=== PATIENT | female | born 1955 | race Caucasian/White ===

== ENCOUNTER → 2016-12-25 | Outpatient (CLI) | payer BC ==
[2016-12-25 12:35] LABS: BLOOD UREA NITROGEN 15 mg/dl (7-18); BUN/CREATININE RATIO 20.4 (10-20); CALCIUM 8.9 mg/dl (8.5-10.1); CARBON DIOXIDE 29 mmol/L (21-32); CHLORIDE 105 mmol/L (98-107); CREATININE 0.73 mg/dl (0.60-1.20); GLUCOSE 102 mg/dl (70-99); POTASSIUM 3.8 mmol/L (3.5-5.1); SODIUM 141 mmol/L (136-145)
[2016-12-25 12:38] LABS: CHOLESTEROL 223 mg/dl (0-200); CHOLESTEROL/HDL RATIO 3.7; HDL CHOLESTEROL 61 mg/dl; LDL CHOLESTEROL CALCULATED 141 mg/dl; TRIGLYCERIDES 104 mg/dl (0-150); VERY LOW DENSITY LIPOPROT CALC 21 mg/dl
== END | disposition home or self-care (01) ==
LOC: C.LABPVFM 08:07
PROVIDERS: ATTEND Nurse Practitioner
DX: Z13.1 Encounter for screening for diabetes mellitus (principal); Z13.220 Encounter for screening for lipoid disorders; E78.5 Hyperlipidemia, unspecified

== ENCOUNTER → 2017-04-26 | Outpatient (CLI) | payer BC ==
--- NOTE | 2017-04-26 16:00 | MAMMOGRAPHY REPORT ---
BILATERAL DIGITAL SCREENING MAMMOGRAM WITH CAD: 04/26/2017 CLINICAL HISTORY: Routine screening. Patient has no complaints. TECHNIQUE: Bilateral CC and MLO views were obtained. Current study was also evaluated with a Comput er Aided Detection (CAD) system. COMPARISON: Comparison is made to exams dated: 03/09/2016 mammogram, 03/06/2015 mammogram, 03/05/2014 mamm ogram, 02/21/2013 mammogram, 08/22/2012 mammogram, and 02/19/2012 mammogram - [facility] ter. BREAST COMPOSITION: There are scattered areas of fibroglandular density in both breasts. FINDINGS: No suspicious mass, architectural distortion or cluster of microcalcifications is seen. IMPRESSION: ACR BI-RADS CATEGORY 1: NEGATIVE There is no mammographic evidence of malignancy. A 1 year screening mammogram is recommended. The pa tient will receive written notification of the results. Approximately 10% of breast cancers are not detected with mammography. A negative mammographic report should not delay biopsy if a clinically suggestive mass is present. Heike Salgado M.D. ay/:04/26/2017 15:51:16 Bar And Filler Assembler: Darlene WIN(R)(M)(BD), [facility] letter sent: Normal 1/2 BI-RADS Code: ACR BI-RADS Category 1: Negative
== END | disposition home or self-care (01) ==
LOC: C.MAMM 15:25
PROVIDERS: ATTEND Family Medicine
DX: Z12.31 Encounter for screening mammogram for malignant neoplasm of breast (principal); Z00.00 Encounter for general adult medical examination without abnormal findings; M85.851 Other specified disorders of bone density and structure, right thigh; M85.852 Other specified disorders of bone density and structure, left thigh

== ENCOUNTER → 2018-01-18 | Outpatient (CLI) | payer BC ==
[2018-01-18 14:35] LABS: BLOOD UREA NITROGEN 13 mg/dl (7-18); CALCIUM 8.9 mg/dl (8.5-10.1); CARBON DIOXIDE 29 mmol/L (21-32); CREATININE 0.72 mg/dl (0.60-1.20); GLUCOSE 104 mg/dl (70-99); POTASSIUM 3.8 mmol/L (3.5-5.1); SODIUM 137 mmol/L (136-145)
[2018-01-18 14:38] LABS: CHOLESTEROL 216 mg/dl (0-200); LDL CHOLESTEROL CALCULATED 124 mg/dl
== END | disposition home or self-care (01) ==
LOC: C.LABPVFM 09:25
PROVIDERS: ATTEND Nurse Practitioner
DX: Z13.1 Encounter for screening for diabetes mellitus (principal); Z13.220 Encounter for screening for lipoid disorders

== ENCOUNTER 2025-01-02 03:20 | Observation (INO) ==
[2025-01-02 03:55] LABS: Basophils # (auto) 0.04 K/uL (0.00-0.20); Basophils % (auto) 0.5 %; Eosinophils # (auto) 0.24 K/uL (0.00-0.50); Eosinophils % (auto) 2.7 %; Hematocrit (blood only) 41.5 % (37.0-47.0); Hemoglobin 13.8 g/dl (12.0-16.0); Immature Granulocytes # (auto) 0.03 K/uL (0.01-0.20); Immature Granulocytes % (auto) 0.3 %; Lymphocytes # (auto) 2.31 K/uL (1.20-3.40); Lymphocytes % (auto) 26.4 %; Mean Corpuscular Hemoglobin 29.1 pg (25.0-34.0); Mean Corpuscular Hgb Conc 33.3 g/dL (32.0-36.0); Mean Corpuscular Volume 87.6 fL (80.0-100.0); Mean Platelet Volume 10.5 fL (9.4-12.4); Monocytes # (auto) 0.68 K/uL (0.11-0.59); Monocytes % (auto) 7.8 %; Neutrophils # (auto) 5.44 K/uL (1.40-6.50); Neutrophils % (auto) 62.3 %; Platelet Count 295 K/uL (130-400); RDW Coefficient of Variation 13.6 % (11.5-14.5); RDW Standard Deviation 43.4 fL (36.4-46.3); Red Blood Count 4.74 M/uL (4.20-5.40); White Blood Count 8.74 K/ul (4.8-10.8)
[2025-01-02 04:07] LABS: Alanine Aminotransferase 20 U/L (7-52); Albumin Globulin Ratio 1.2 (0.9-2); Albumin Level 3.9 gm/dl (3.4-5.0); Alkaline Phosphatase 113 U/L (34-104); Anion Gap 7 (3-11); Aspartate Aminotransferase 32 U/L (13-39); BUN Creatinine Ratio 18.2 (10-20); Bilirubin,Total 0.5 mg/dl (0.2-1.0); Blood Urea Nitrogen 12 mg/dl (6-23); Calcium 9.4 mg/dl (8.6-10.3); Carbon Dioxide 26 mmol/L (21-32); Chloride 104 mmol/L (98-107); Creatinine Clr Calc Pharmacy 84.1 ml/min; Globulin 3.3 gm/dl (2.5-4.0); Glucose 115 mg/dl (70-99(Fasting)); Lipase 32 U/L (11-82); Potassium 3.5 mmol/L (3.5-5.1); Sodium 137 mmol/L (136-145); Total Protein 7.2 gm/dl (6.0-8.3)
--- NOTE | 2025-01-02 04:07 | Emergency Department Note ---
Impression & Plan Chest pain ED Provider Note HISTORY OF PRESENT ILLNESS: Patient is a 69-year-old female presenting with chest pain. Patient reports for the last 36 hours she has been having intermittent episodes of chest pain. She states that yesterday every 45 minutes to an hour she would develop substernal chest pain that radiated into her back and up into the right side of her neck. She was seen by her primary care provider who had ordered her nitroglycerin and recommended she present to the emergency department, but the patient reported that she thought the symptoms would get better and stayed home. She states that around 130 this morning she awoke from sleep with substernal chest pain on the substernal and right side of her chest that radiated to her back and into her right jaw. She reports she got very flushed and diaphoretic with this and nauseous. On arrival to the ER, she is currently complaining of no chest pain. She denies any associated shortness of breath. Denies any history of DVT or PE. Denies any anticoagulation or antiplatelet use. She was given 324 mg of aspirin prehospital with EMS. She denies any history of cardiac stents. She reports her last stress test was over a decade ago. ROS: as above PHYSICAL EXAM: Constitutional: Patient appears in no acute distress. HENT: Head: Normocephalic and atraumatic. Eyes: EOMI, PERRL Mouth/Throat: Mucous membranes moist. Neck: Trachea midline. Neck supple. Cardiovascular: RRR, No murmurs, rubs or gallops. Intact distal pulses. Pulmonary/Chest: No respiratory distress. Breath sounds clear and equal bilaterally. No wheezes or rales. Abdominal: Abdomen soft, no tenderness, rebound or guarding. Musculoskeletal: No edema, tenderness or deformity noted. Skin: Warm and dry. No rash, erythema, pallor or cyanosis Psychiatric: Appropriate mood and affect for situation. Neurological: Alert and keenly responsive. CN II-XII grossly intact, moving all extremities equally and fully. MDM: - Vitals signs showed hypertension - History obtained via patient. History as above. - Chronic conditions affecting care: HTN; pre-diabetes - Differential diagnoses include, but are not limited to: Acute coronary syndrome; pulmonary embolism; dissection; tension pneumothorax; esophageal rupture; pneumonia - Order placed for continuous cardiac monitoring. At this time, monitor showed rate of 64 bpm with normal sinus rhythm, per my interpretation. - External medical records reviewed. Primary care visit note dated 01/01/2025 was reviewed. Patient was seen for chest pain. She was prescribed aspirin and nitroglycerin. - EKG image interpreted by myself showed normal sinus rhythm. Rate 73 bpm. QT 396. No acute ischemic changes. - Laboratory workup interpreted by myself showed normal WBC; normal PT/INR; stable electrolytes; normal troponin; normal BNP - CXR image interpreted by myself is negative for pneumonia, per my interpretation. Radiology noted a right upper zone pulmonary nodule. - Patient had an episode of substernal chest pain while in the emergency department. IV Tylenol was ordered, but the patient declined. - Moderate risk HEART score. - Discussion was had with vocational case manager about patient's case and need for admission - Hospitalist consulted for admission - Patient admitted to [facility] for further evaluation and management. ASSESSMENT AND PLAN: Diagnosis: chest pain Plan: Admit Past Med/Surg History Problem List (Updated 01/02/25 @ 05:04 by Clarisse Dukes MD) Chest pain (Acute) S/P arthroscopic knee surgery Urinary symptom or sign Pre-diabetes Tear of medial meniscus of knee Nausea Right knee DJD Right knee pain Hypertension Allergic rhinitis Elevated serum globulin level Elevated alkaline phosphatase level Chronic reflux esophagitis (Acute) Irritable bowel syndrome (Acute) Menopausal vaginal dryness (Acute) Rosacea (Acute) Lichen sclerosus Cystocele (Chronic) pessary in place Medical History Slow to wake up after anesthesia Hypertension History of COVID-19 Rosacea IBS (irritable bowel syndrome) Pre-diabetes Pollen allergies Osteoarthritis Acid reflux Surgical History History of needle biopsy History of colonoscopy History of bilateral cataract extraction History of wisdom tooth extraction History of tubal ligation (~1986) Family History Father Myocardial infarction Family history of diabetes mellitus Mother Family history of diabetes mellitus Other No family history of adverse response to anesthesia Denies family history of Ovarian cancer Prostate cancer Breast cancer Colorectal cancer Social History (Updated 01/01/25 @ 13:32 by Lindsey Pascual LPN) Smoking Status: Never smoker Second Hand Exposure: Yes (as child); Do You Dip or Chew Tobacco: No; Hx Alcohol Use: Yes Alcohol type: beer, wine and hard liquor Alcohol Intake Frequency: 2-4 x/Month Hx Substance Use: No Preferred Language: Luxembourgish Communication Ability: Effective Visual Impairment: Limited Hearing Ability: Hard of Hearing Steam Tender Required: No Beliefs That Will Affect Care: None marital status: / Current Living Situation: Alone current occupational status: retired How many Children do You have: 1 Feels Safe at Home: Yes Childhood Exposure to Second-Hand Smoke: Yes Diet: regular caffeine: No during the past year weight has: remained stable Dental Care, Regularly: Yes Physical Activity Frequency: 3-4 Times per Week Physical Activity Frequency Comment: Stretching and weights class 2 days a week and walk about 2 days a week Seatbelt Use: always Sunscreen Use: No Do you think of yourself as: straight/heterosexual Sexual Activity: has been sexually active, but not for at least 12 months Gender Identity: Female Assistive Devices: Glasses Allergies Allergies Allergy/AdvReac Type Severity Reaction Status Date / Time No Known Drug Allergies Allergy Unknown Verified 01/01/25 13:31 pollen extracts Allergy Unknown sneezing, Verified 01/01/25 13:31 watery eyes Home Meds Home Medications Medication Instructions Recorded Confirmed beta tnrelrdr-I-O-lutein-min #29 1 tab PO QAM 01/04/20 01/01/25 5,000 unit-60 mg-30 unit-2 mg tablet (Macuvite With Lutein) calcium carbonate (Tums) 600 mg PO DAILY PRN Acid Reflux 07/11/20 01/01/25 diphenhydramine HCl 25 mg capsule 25 mg PO BID PRN Allergy Symptoms 07/11/20 01/01/25 (Benadryl) ibuprofen 200 mg tablet 200 mg PO Q6H PRN Pain 07/11/20 01/01/25 loratadine 10 mg tablet 10 mg PO QAM 07/11/20 01/01/25 omega-3 fatty acids 1,000 mg 1,000 mg PO DAILY 11/11/20 01/01/25 capsule (Fish Oil Concentrate) diclofenac sodium [Voltaren] 1 dose topical .nightly PRN Pain 04/28/23 01/01/25 cholecalciferol (vitamin D3) 125 125 mcg PO DAILY 01/14/24 01/01/25 mcg (5,000 unit) capsule Previous Rx's Medication Instructions Recorded clobetasol 0.05 % topical ointment 1 applic topical BID #30 grams 09/25/24 losartan 25 mg tablet 25 mg PO QAM #30 tabs 12/25/24 aspirin 81 mg tablet,delayed 81 mg PO DAILY #30 tabs 01/01/25 release (Adult Aspirin Regimen) nitroglycerin 0.4 mg sublingual 0.4 mg sublingual Q5M PRN chest 01/01/25 tablet pain #10 tabs Results & Data (ED) Vital Signs Vital Signs - 24 hr 01/02/25 03:31 01/02/25 03:37 01/02/25 03:45 Temperature 36.4 C L Temperature Source Oral Pulse Rate 68 63 Respiratory Rate 20 Respiratory Effort / Characteristics Non-Labored Spontaneous Respiratory Depth Normal Respiratory Pattern Regular Blood Pressure 153/89 H Blood Pressure Mean 110 Blood Pressure Position Semi-fowlers Pulse Oximetry 97 97 Oxygen Delivery Method Room Air Room Air Sepsis Recent Fever Within 48 Hours No Sepsis New/Unexplained Change in Mental Status N/A Sepsis Action Taken by Nursing No Action Required Laboratory Data 01/02/25 03:25 01/02/25 03:25 Lab Results 01/02/25 Range/Units 03:25 WBC 8.74 (4.8-10.8) K/ul RBC 4.74 (4.20-5.40) M/uL Hgb 13.8 (12.0-16.0) g/dl Hct 41.5 (37.0-47.0) % MCV 87.6 (80.0-100.0) fL MCH 29.1 (25.0-34.0) pg MCHC 33.3 (32.0-36.0) g/dL RDW Std Deviation 43.4 (36.4-46.3) fL RDW Coeff of [place] 13.6 (11.5-14.5) % Plt Count 295 (130-400) K/uL MPV 10.5 (9.4-12.4) fL Immature Gran % (Auto) 0.3 % Neut % (Auto) 62.3 % Lymph % (Auto) 26.4 % [place] % (Auto) 7.8 % Eos % (Auto) 2.7 % Baso % (Auto) 0.5 % Neut # (Auto) 5.44 (1.40-6.50) K/uL Lymph # (Auto) 2.31 (1.20-3.40) K/uL [place] # (Auto) 0.68 H (0.11-0.59) K/uL Eos # (Auto) 0.24 (0.00-0.50) K/uL Baso # (Auto) 0.04 (0.00-0.20) K/uL Immature Gran # (Auto) 0.03 (0.01-0.20) K/uL PT 10.3 (9.0-12.0) Seconds INR 0.9 (0.9-1.1) Sodium 137 (136-145) mmol/L Potassium 3.5 (3.5-5.1) mmol/L Chloride 104 (98-107) mmol/L Carbon Dioxide 26 (21-32) mmol/L Anion Gap 7 (3-11) BUN 12 (6-23) mg/dl Creatinine 0.66 (0.6-1.2) mg/dl Est Cr Clr Drug Dosing 84.1 ml/min eGFR 93.73 BUN/Creatinine Ratio 18.2 (10-20) Glucose 115 H (70-99(Fasting)) mg/dl Calcium 9.4 (8.6-10.3) mg/dl Total Bilirubin 0.5 (0.2-1.0) mg/dl AST 32 (13-39) U/L ALT 20 (7-52) U/L Alkaline Phosphatase 113 H (34-104) U/L Troponin I High Sens < 2.3 (0-14) pg/ml B-Natriuretic Peptide 25 (0-100) pg/ml Total Protein 7.2 (6.0-8.3) gm/dl Albumin 3.9 (3.4-5.0) gm/dl Globulin 3.3 (2.5-4.0) gm/dl Albumin/Globulin Ratio 1.2 (0.9-2) Lipase 32 (11-82) U/L Imaging Data Radiologist's Impression: Chest X-Ray 01/02/25 03:25 EXAM: XR chest 1V portable CLINICAL HISTORY: Chest pain, nonspecific TECHNIQUE: An X-ray image of the chest is obtained in AP projection. COMPARISON: No prior studies are available for comparison. FINDINGS: Pulmonary Parenchyma: Elevated left hemidiaphragm. Right upper zone pulmonary nodule. Lungs show prominent perihilar bronchovascular markings. No evidence of consolidation, collapse, or focal opacities. No evidence of pleural effusion or pleural thickening. Heart and Mediastinum: Heart size and shape are normal. No mediastinal widening or masses. No hilar or mediastinal lymphadenopathy. Bony Thorax: Bony thorax appears intact without fractures or deformities. Soft Tissues: Soft tissues overlying the chest wall are unremarkable. IMPRESSION: - Prominent perihilar bronchovascular markings may be non-specific versus representing congestion. Clinical correlation is suggested. - No evidence of consolidation, collapse, or pleural effusion. - Right upper zone dense pulmonary nodule, may represent a granuloma. Comparison with previous imaging is suggested. - Elevated left hemidiaphragm. Electronically signed by Sukhdeep Moore 01-02-2025 04:15 AM Discharge Plan Visit Data Chief Complaint: Cardiac Assessment Stated Complaint: HAD CHEST PAIN EARLIER, RESOLVED NOW ED Provider: Clarisse Dukes Discharge Problem: Chest pain Forms Stand Alone Forms: [facility] Prescriptions Prescriptions: No Action clobetasol 0.05 % ointment 1 applic topical BID Qty: 30 2RF losartan 25 mg tablet 25 mg PO QAM Qty: 30 11RF omega-3 fatty acids [Fish Oil Concentrate] 1,000 mg capsule 1,000 mg PO DAILY cholecalciferol (vitamin D3) 125 mcg (5,000 unit) capsule 125 mcg PO DAILY diclofenac sodium [Voltaren] 1 dose topical .nightly PRN (Reason: Pain) Macuvite With Lutein 5,000-60-30-2 nafs-nx-gusr-mg tablet 1 tab PO QAM nitroglycerin 0.4 mg tablet, sublingual 0.4 mg sublingual Q5M PRN (Reason: chest pain) Qty: 10 0RF Rx Instructions: do not exceed 3 doses per episode aspirin [Adult Aspirin Regimen] 81 mg tablet,delayed release (DR/EC) 81 mg PO DAILY Qty: 30 2RF diphenhydramine HCl [Benadryl] 25 mg Capsule 25 mg PO BID PRN (Reason: Allergy Symptoms) ibuprofen 200 mg Tablet 200 mg PO Q6H PRN (Reason: Pain) loratadine 10 mg Tablet 10 mg PO QAM Tums 300 mg (750 mg) Tablet,Chewable 600 mg PO DAILY PRN (Reason: Acid Reflux) Referrals Referrals: Viv Hernandez CRNP [Primary Care Provider] -
[2025-01-02 04:13] LABS: Troponin I High Sensitivity < 2.3 pg/ml (0-14)
[2025-01-02 04:15] LABS: INR 0.9 (0.9-1.1); Prothrombin Time 10.3 Seconds (9.0-12.0)
--- NOTE | 2025-01-02 04:15 | XRay Report ---
EXAM: XR chest 1V portable CLINICAL HISTORY: Chest pain, nonspecific TECHNIQUE: An X-ray image of the chest is obtained in AP projection. COMPARISON: No prior studies are available for comparison. FINDINGS: Pulmonary Parenchyma: Elevated left hemidiaphragm. Right upper zone pulmonary nodule. Lungs show prominent perihilar bronchovascular markings. No evidence of consolidation, collapse, or focal opacities. No evidence of pleural effusion or pleural thickening. Heart and Mediastinum: Heart size and shape are normal. No mediastinal widening or masses. No hilar or mediastinal lymphadenopathy. Bony Thorax: Bony thorax appears intact without fractures or deformities. Soft Tissues: Soft tissues overlying the chest wall are unremarkable. IMPRESSION: - Prominent perihilar bronchovascular markings may be non-specific versus representing congestion. Clinical correlation is suggested. - No evidence of consolidation, collapse, or pleural effusion. - Right upper zone dense pulmonary nodule, may represent a granuloma. Comparison with previous imaging is suggested. - Elevated left hemidiaphragm. Electronically signed by Sukhdeep Moore 01-02-2025 04:15 AM
[2025-01-02] MEDS: ACETAMINOPHEN 1,000 MG/100 ML VIAL IV STA (05:11)
--- NOTE | 2025-01-02 05:27 | History & Physical Report ---
Date of Service January 02, 2025 Assessment & Plan (1) Chest pain: Plan 69-year-old female PMHx prediabetes and HTN presenting for chest pain. Patient was just seen by PCP on 01/01/2025 for same complaint which started 2 days prior to that (12/30/2024). ED evaluation reveals no leukocytosis, normal blood counts, no gross abnormalities on CMP with exception of alkaline phosphatase at 113, troponin <2.3, repeat 3.3, and lipase of 32; CXR reveals no acute findings but does demonstrate R upper zone dense pulmonary nodule and prominent bronchovascular markings. EKG is normal sinus at a rate of 73 bpm. Patient was provided with acetaminophen 1 g IV in ED. 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 Presenting today for being awoken at 0130 for chest pain that radiates up to neck and back. Positive family history of cardiac disease. Low suspicion that this is ACS however HEART score is 4 (history moderately suspicious, age, 1-2 risk factors). - EKG normal sinus at a rate of 73 bpm; troponin <2.3, repeat 3.3; pending echo - CBC, CMP grossly WNL - CXR with ? prominent bronchovascular markings and are present dense pulmonary nodule - Pending lipids; not on statin, however consideration of starting statin was discussed at most recent PCP visit on 01/01/2025. - Continue NTG, continue aspirin - Tylenol as needed for pain #HTN- Losartan Dispo: Admit, med/tele VTE prophylaxis: Lovenox This document was dictated utilizing TIME PLUS Q. Please excuse any grammatical errors that may be secondary to use of this software. Admission and Anticipated Discharge Date Admission Date: 01/02/2025 History of Present Illness Chief Complaint: Chest pain Primary Care Provider: KETTY Orellana 69-year-old female PMHx prediabetes and HTN presenting for chest pain. Patient was just seen by PCP on 01/01/2025 for same complaint which started 2 days prior to that (12/30/2024). Presenting today via EMS after she awoke from sleep around 0130 with sharp pain in the right side of her chest that radiated to her right neck and jaw as well as her back. She did have an episode of nausea without vomiting and did have diaphoresis. The pain is sharp in nature, rating 4-5/10 on the pain scale, and episodes lasting 30 seconds to 1 minute in duration then resolving. States that she has never had this happen before. Does have acid reflux at baseline and has noticed increased belching over the past few days. 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 Patient was prescribed nitroglycerin by her PCP but did not pick it up yet. Also recommended to start daily aspirin which patient has been doing. Denies palpitations, SOB, cough, abdominal pain, D/C, numbness/tingling, LUTS, edema, syncope, or dizziness. Never had this happen before. ED evaluation reveals no leukocytosis, normal blood counts, no gross abnormalities on CMP with exception of alkaline phosphatase at 113, troponin <2.3, pending repeat, and lipase of 32; CXR reveals no acute findings but does demonstrate R upper zone dense pulmonary nodule and prominent bronchovascular markings. EKG is normal sinus at a rate of 73 bpm. Patient was provided with acetaminophen 1 g IV in ED. Please see Dr. Byers's attestation for adjustments/additions to treatment plan. Allergies Allergy/AdvReac Type Severity Reaction Status Date / Time No Known Drug Allergies Allergy Unknown Verified 01/01/25 13:31 pollen extracts Allergy Unknown sneezing, Verified 01/01/25 13:31 watery eyes Home Medications Medication Instructions Recorded Confirmed Type beta spqemcng-J-C-lutein-min #29 1 tab PO QAM 01/04/20 01/02/25 History 5,000 unit-60 mg-30 unit-2 mg tablet (Macuvite With Lutein) calcium carbonate (Tums) 600 mg PO DAILY PRN Acid Reflux 07/11/20 01/02/25 History diphenhydramine HCl 25 mg capsule 25 mg PO BID PRN Allergy Symptoms 07/11/20 01/02/25 History (Benadryl) ibuprofen 200 mg tablet 200 mg PO Q6H PRN Pain 07/11/20 01/02/25 History loratadine 10 mg tablet 10 mg PO QAM 07/11/20 01/02/25 History omega-3 fatty acids 1,000 mg 1,000 mg PO DAILY 11/11/20 01/02/25 History capsule (Fish Oil Concentrate) diclofenac sodium [Voltaren] 1 dose topical .nightly PRN Pain 04/28/23 01/02/25 History cholecalciferol (vitamin D3) 125 125 mcg PO DAILY 01/14/24 01/02/25 History mcg (5,000 unit) capsule clobetasol 0.05 % topical ointment 1 applic topical BID #30 grams 09/25/24 01/02/25 Rx losartan 25 mg tablet 25 mg PO QAM #30 tabs 12/25/24 01/02/25 Rx aspirin 81 mg tablet,delayed 81 mg PO DAILY #30 tabs 01/01/25 01/02/25 Rx release (Adult Aspirin Regimen) nitroglycerin 0.4 mg sublingual 0.4 mg sublingual Q5M PRN chest 01/01/25 01/02/25 Rx tablet pain #10 tabs Past Med/Surg History Problem List (Updated 01/02/25 @ 05:04 by Clarisse Dukes MD) Chest pain (Acute) S/P arthroscopic knee surgery Urinary symptom or sign Pre-diabetes Tear of medial meniscus of knee Nausea Right knee DJD Right knee pain Hypertension Allergic rhinitis Elevated serum globulin level Elevated alkaline phosphatase level Chronic reflux esophagitis (Acute) Irritable bowel syndrome (Acute) Menopausal vaginal dryness (Acute) Rosacea (Acute) Lichen sclerosus Cystocele (Chronic) pessary in place Medical History Slow to wake up after anesthesia Hypertension History of COVID-19 Rosacea IBS (irritable bowel syndrome) Pre-diabetes Pollen allergies Osteoarthritis Acid reflux Surgical History History of needle biopsy History of colonoscopy History of bilateral cataract extraction History of wisdom tooth extraction History of tubal ligation (~1986) Family History Father Myocardial infarction Family history of diabetes mellitus Mother Family history of diabetes mellitus Other No family history of adverse response to anesthesia Denies family history of Ovarian cancer Prostate cancer Breast cancer Colorectal cancer Social History (Updated 01/01/25 @ 13:32 by Lindsey Pascual LPN) Smoking Status: Never smoker Second Hand Exposure: Yes (as child); Do You Dip or Chew Tobacco: No; Hx Alcohol Use: No Hx Substance Use: No Preferred Language: Sami Communication Ability: Effective Visual Impairment: Limited Hearing Ability: Hard of Hearing 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 Beliefs That Will Affect Care: None marital status: / Current Living Situation: Alone current occupational status: retired How many Children do You have: 1 Feels Safe at Home: Yes Childhood Exposure to Second-Hand Smoke: Yes Diet: regular caffeine: No during the past year weight has: remained stable Dental Care, Regularly: Yes Physical Activity Frequency: 3-4 Times per Week Physical Activity Frequency Comment: Stretching and weights class 2 days a week and walk about 2 days a week Seatbelt Use: always Sunscreen Use: No Do you think of yourself as: straight/heterosexual Sexual Activity: has been sexually active, but not for at least 12 months Gender Identity: Female Assistive Devices: Glasses Review of Systems Review of Systems: All systems reviewed & are unremarkable except as noted in Subjective Physical Exam Physical Exam: General: No acute distress Skin: Warm and dry Head: Normocephalic, atraumatic Eyes: PERRL, conjunctivae clear, sclera non-icteric ENT: External ear and ear canal without swelling; nose atraumatic; good dentition, tongue normal appearance, pharynx normal Neck: Supple, no LAD Cardio: RRR, no M/G/R, S1 and S2 normal Resp: No respiratory distress, Lungs CTA in all lobes bilaterally, no wheezes, rales, or rhonchi Abdomen: Soft, symmetric, nontender; No masses or hepatosplenomegaly; Bowel sounds normoactive MSK: No deformities; pulses palpable and equal; no edema. Neuro: Awake, alert; CN grossly intact Psych: Appropriate mood and affect; good judgement and insight. Becomes tearful when discussing code status. Results & Data Results & Data Vital Signs (Past 12 Hours) Vital Signs Temp Pulse Resp BP Pulse Ox O2 Del Method 01/02/25 03:45 63 01/02/25 03:37 97 Room Air 01/02/25 03:31 36.4 C L 68 20 153/89 H 97 Room Air Laboratory Results 01/02/25 03:25 WBC 8.74 RBC 4.74 Hgb 13.8 Hct 41.5 MCV 87.6 MCH 29.1 MCHC 33.3 RDW Std Deviation 43.4 RDW Coeff of [place] 13.6 Plt Count 295 MPV 10.5 Immature Gran % (Auto) 0.3 Neut % (Auto) 62.3 Lymph % (Auto) 26.4 Butler % (Auto) 7.8 Eos % (Auto) 2.7 Baso % (Auto) 0.5 Neut # (Auto) 5.44 Lymph # (Auto) 2.31 Butler # (Auto) 0.68 H Eos # (Auto) 0.24 Baso # (Auto) 0.04 Immature Gran # (Auto) 0.03 PT 10.3 INR 0.9 Sodium 137 Potassium 3.5 Chloride 104 Carbon Dioxide 26 Anion Gap 7 BUN 12 Creatinine 0.66 Est Cr Clr Drug Dosing 84.1 eGFR 93.73 BUN/Creatinine Ratio 18.2 Glucose 115 H Calcium 9.4 Total Bilirubin 0.5 AST 32 ALT 20 Alkaline Phosphatase 113 H Troponin I High Sens < 2.3 B-Natriuretic Peptide 25 Total Protein 7.2 Albumin 3.9 Globulin 3.3 Albumin/Globulin Ratio 1.2 Lipase 32 Diagnostic Findings Chest X-Ray 01/02/25 03:25 EXAM: XR chest 1V portable CLINICAL HISTORY: Chest pain, nonspecific TECHNIQUE: An X-ray image of the chest is obtained in AP projection. COMPARISON: No prior studies are available for comparison. FINDINGS: Pulmonary Parenchyma: Elevated left hemidiaphragm. Right upper zone pulmonary nodule. Lungs show prominent perihilar bronchovascular markings. No evidence of consolidation, collapse, or focal opacities. No evidence of pleural effusion or pleural thickening. Heart and Mediastinum: Heart size and shape are normal. No mediastinal widening or masses. No hilar or mediastinal lymphadenopathy. Bony Thorax: Bony thorax appears intact without fractures or deformities. Soft Tissues: Soft tissues overlying the chest wall are unremarkable. IMPRESSION: - Prominent perihilar bronchovascular markings may be non-specific versus representing congestion. Clinical correlation is suggested. - No evidence of consolidation, collapse, or pleural effusion. - Right upper zone dense pulmonary nodule, may represent a granuloma. Comparison with previous imaging is suggested. - Elevated left hemidiaphragm. Electronically signed by Sukhdeep Moore 01-02-2025 04:15 AM Medications Administered Acetaminophen 1g IV ECG Additional Comments: NSR, minimal voltage criteria for LVH 73 bpm, MS 190, QRS 82, QT/QTc 396/436, PRT 51/-01/23 Code Status & VTE Plan Code Status DNR/DNI Supervising Physician Co-Signing Physician Notes Patient seen and examined, chart reviewed, case discussed with NICK Cross and I agree with the assessment and plan as above. In brief, patient is a 69yo female with no known cardiac history, pre-DM, HTN and FHx of cardiac disease presenting with chest pain. She has had an ongoing intermittent right sided chest pain which started several days ago. She was seen by her PCP and instructed to come to the ER if the pain returns. She did have an episode that woke her from sleep that radiated down her right arm, neck and back associated with some diaphoresis. Troponin x 2 unremarkable but do show a slight uptrend EKG is non-ischemia On exam she is resting comfortably, NAD Skin - intact, no rash HEENT - MMM, neck supple, no JVD Heart - +S1/S2, regular, no m/r/g, no chest wall rashes, no reproducible chest wall pain or epigastric pain Lungs - CTA, no rales/rhonchi/wheezes Abd - soft, NT/ND Labs and images reviewed Assessment/Plan 69yo female with history of pre-DM, HTN, family history of CAD presenting with ongoing chest discomfort. Fairly certain that the ongoing pain is non-cardiac as it has been going for >36 hours, no acute EKG changes and Troponin x 2 is NEGATIVE. Some low level concern for this episode that woke her from sleep. -Observation -Telemetry monitoring -Trend troponin PG Care Time/CCT Total # of Minutes Spent Total Time Spent with Patient: Total time spent is greater than 50% in coordination of care (as documented) at patient's floor/unit and/or counseling patient: Coding Level of Care Code 71753 INT INP/OBS CARE 3/75MIN Diagnoses Chest pain R07.9
[2025-01-02] MEDS ORDERED: ACETAMINOPHEN 325 MG TAB PO PRN (08:35)
[2025-01-02] MEDS ORDERED: POLYETHYLENE (MIRALAX) 17 GM PACK PO PRN (08:35)
[2025-01-02] MEDS ORDERED: MELATONIN 3 MG TAB PO PRN (08:35)
[2025-01-02 10:56] LABS: Chol HDL Ratio 2.9 (0-5)
[2025-01-02] MEDS: ENOXAPARIN INJ 40 MG/0.4 ML SYR SQ SCH (10:56)
[2025-01-02 11:57] LABS: Appearance Urine Clear (Clear); Bacteria Urine Automated None Seen (None Seen); Bilirubin Urine Negative (Negative); Blood Urine Negative (Negative); Cast Urine Automated 0-2 /lpf (0-2); Color Urine Yellow; Epithelial Cell Urine Auto 0-2 /hpf (0-2); Glucose Urine UA Negative (Negative); Ketones Urine Negative (Negative); Leukocyte Esterase Urine 1+ (Negative); Nitrite Urine Negative (Negative); Protein Urine Negative (Negative); RBC Urine Automated 0-2 /hpf (0-2); Specific Gravity Urine 1.018 (1.000-1.030); Urobilinogen Urine Negative (Negative); WBC Urine Automated 0-5 /hpf (0-5)
[2025-01-02] MEDS ORDERED: CALCIUM CARBONATE 500 MG CHEWABLE TAB PO PRN (15:17)
--- NOTE | 2025-01-02 15:27 | Hospitalist Progress Note ---
Date of Service January 02, 2025 Assessment & Plan (1) Chest pain: Plan 69-year-old female PMHx of HTN admitted for observation for chest pain. Patient was just seen by PCP on 01/01/2025 for same complaint which started 2 days prior to that (12/30/2024). ED evaluation revealed no leukocytosis, normal blood counts, no gross abnormalities on CMP with exception of alkaline phosphatase at 113, troponin <2.3, repeat 3.3, and lipase of 32; CXR reveals no acute findings but does demonstrate R upper zone dense pulmonary nodule and prominent bronchovascular markings. EKG is normal sinus at a rate of 73 bpm. Pain was controlled with acetaminophen 1 g IV in ED. 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 Presenting today for being awoken at 0130 for chest pain that radiates up to neck and back. Positive family history of cardiac disease. Low suspicion that this is ACS however HEART score is 4 (history moderately suspicious, age, 1-2 risk factors). - EKG normal sinus at a rate of 73 bpm; troponin <2.3, repeat 3.3 - Repeat EKG during episode of chest pain this morning reassuring with read in sinus rhythm and without evidence of ST changes - Awaiting results from Echocardiogram - Ordered cardiology consult regarding need for stress test - CBC, CMP grossly WNL - CXR with ? prominent bronchovascular markings and are present dense pulmonary nodule Consider outpt follow up for pulmonary nodule - Total Cholesterol is 207, HDL is 71 Not on statin, however consideration of starting statin was discussed at most recent PCP visit on 01/01/2025. - Continue nitroglycerine PRN - Continue Aspirin 81 mg - Tylenol 650mg PO as needed for pain #HTN- -Continue Losartan 25mg Chronic Conditions: - Loratadine 10 mg for allergies - Polyethylene Glycol 17gm PRN for constipation Diet: Regular Code status: DNR/DNI DVT prophylaxis: Enoxaparin 40mg qd Dispo: Med tele Dispo: Admit, med/tele VTE prophylaxis: Lovenox Code status: Full Code Diet: Heart Healthy Admission and Anticipated Discharge Date Admission Date: January 02, 2025 Supervising Physician Co-Signing Physician Notes Patient seen and examined, chart reviewed, case discussed with Crista Haley PGY1 and I agree with the assessment and plan as above. In brief, patient is a 69yo female with no known cardiac history, pre-DM, HTN and FHx of cardiac disease presenting with chest pain. She has had an ongoing intermittent right sided chest pain which started several days ago. She was seen by her PCP and instructed to come to the ER if the pain returns. She did have an episode that woke her from sleep that radiated down her right arm, neck and back associated with some diaphoresis. Troponin x 2 unremarkable but do show a slight uptrend EKG is non-ischemia Exam is nonspecific. Had a previous stress test workup in the distant past but this discomfort also include arm discomfort Labs and images reviewed Assessment/Plan 69yo female with history of pre-DM, HTN, family history of CAD presenting with ongoing chest discomfort. Fairly certain that the ongoing pain is non-cardiac as it has been going for >36 hours, no acute EKG changes and Troponin x 2 is NEGATIVE. Some low level concern for this episode that woke her from sleep. -Troponin trend is unrevealing given the patient's description of significant exertional discomfort will have cardiology consultation to determine if we will proceed with stress testing Subjective Pt is a 69 yo female with PMH of HTN, IBS, and Knee OA who presented to ED with chest pain. This morning, pt reported increased chest pain and EKG was performed. Pt was in sinus rhythm without evidence of ST elevations or depressions. Troponins g=have been stable and <3.0. Pt describes pain at left sided anterior chest with radiation to he mid back. She reports accompanying nausea, belching/gassiness and mild SOB. She denies radiation of pain to arm or jaw, dizziness, fatigue, or vomiting. Pt denies history of previous chest pain described. She does endorse chest pain with SOB during a time of high stress at her job approx 10 yrs ago. She underwent exercise stress test, which was negative at that time. Pt denies KEBEDE, current SOB, cough, congestion, chronic GERD, abdominal pain, diarrhea, dizziness, muscle/joint aches, or rashes Review of Systems Review of Systems: As per HPI Physical Exam Physical Exam: General: No acute distress Head: Normocephalic, atraumatic Eyes: PERRL, conjunctivae clear, sclera non-icteric ENT: External ear normal, good dentition, tongue normal appearance, pharynx normal Neck: Supple, no LAD, No JVD Cardio: RRR, no M/G/R, S1 and S2 normal Resp: Lungs CTA in all lobes bilaterally, no wheezes, rales, or rhonchi. Normal work of breathing Abdomen: Soft, symmetric, nontender; No masses or hepatosplenomegaly; Bowel sounds normoactive MSK: No deformities; pulses palpable and equal; no edema. Neuro: Awake, alert; CN grossly intact Skin: Warm and dry, no rashes on exposed areas Psych: Appropriate mood and affect; good judgement and insight. Results & Data Results & Data Vital Signs (Past 12 Hours) Vital Signs Temp Pulse Pulse Resp BP BP Pulse Ox 01/02/25 14:19 85 01/02/25 14:04 36.6 C 86 18 139/77 98 01/02/25 13:58 01/02/25 12:00 64 13 135/73 95 01/02/25 11:30 89 16 97 01/02/25 11:21 77 19 97 01/02/25 11:09 79 18 97 01/02/25 11:05 82 18 156/83 H 98 01/02/25 10:45 82 15 95 01/02/25 10:36 82 16 95 01/02/25 10:27 88 21 156/83 H 96 01/02/25 09:54 74 15 140/96 01/02/25 09:36 89 18 01/02/25 09:30 123/76 01/02/25 09:03 82 20 129/82 01/02/25 08:00 132/75 01/02/25 08:00 65 14 130/72 99 01/02/25 07:33 65 01/02/25 06:30 72 18 141/101 H 95 01/02/25 06:15 70 20 97 01/02/25 06:09 63 12 97 01/02/25 05:00 62 12 181/102 H 97 01/02/25 04:00 63 14 140/85 97 01/02/25 03:45 63 01/02/25 03:42 65 16 95 01/02/25 03:40 137/80 01/02/25 03:37 97 01/02/25 03:31 36.4 C L 68 20 153/89 H 97 O2 Del Method 01/02/25 14:19 01/02/25 14:04 Room Air 01/02/25 13:58 Room Air 01/02/25 12:00 01/02/25 11:30 01/02/25 11:21 01/02/25 11:09 01/02/25 11:05 Room Air 01/02/25 10:45 01/02/25 10:36 01/02/25 10:27 01/02/25 09:54 01/02/25 09:36 01/02/25 09:30 01/02/25 09:03 01/02/25 08:00 01/02/25 08:00 Room Air 01/02/25 07:33 01/02/25 06:30 Room Air 01/02/25 06:15 01/02/25 06:09 01/02/25 05:00 Room Air 01/02/25 04:00 Room Air 01/02/25 03:45 01/02/25 03:42 Room Air 01/02/25 03:40 01/02/25 03:37 Room Air 01/02/25 03:31 Room Air Resident Activity Tracking Resident Involvement: Resident Care Provided Care Provided: Adult Hospital Medicine
--- NOTE | 2025-01-02 16:52 | XCELERA ---
[id number]
--- NOTE | 2025-01-02 19:17 | Billing Data ---
Date of Service January 02, 2025 Coding Level of Care Code 96632 SUB INP/OBS CARE
[2025-01-03] MEDS: NITROGLYCERIN SL 0.4 MG/TAB TAB SL PRN (03:07)
[2025-01-03] MEDS: ONDANSETRON INJ 2 MG/ML 2 ML VIAL IV PRN (03:08)
[2025-01-03] MEDS: LORazepam 2 MG/1 ML VIAL IV STA (05:31)
--- NOTE | 2025-01-03 06:37 | Hospitalist Progress Note ---
Date of Service January 03, 2025 Assessment & Plan (1) Chest pain: Plan 69-year-old female PMHx of HTN admitted for observation for chest pain. Patient was just seen by PCP on 01/01/2025 for same complaint which started 2 days prior to that (12/30/2024). ED evaluation revealed no leukocytosis, normal blood counts, no gross abnormalities on CMP with exception of alkaline phosphatase at 113, troponin <2.3, repeat 3.3, and lipase of 32; CXR reveals no acute findings but does demonstrate R upper zone dense pulmonary nodule and prominent bronchovascular markings. EKG is normal sinus at a rate of 73 bpm. Pain was controlled with acetaminophen 1 g IV in ED. 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 Presenting today for being awoken at 0130 for chest pain that radiates up to neck and back. Positive family history of cardiac disease. Low suspicion that this is ACS however HEART score is 4 (history moderately suspicious, age, 1-2 risk factors). - EKG normal sinus at a rate of 73 bpm; troponin <2.3, repeat 3.3 - Repeat EKG during episode of chest pain this morning reassuring with read in sinus rhythm and without evidence of ST changes - Awaiting results from Echocardiogram - Ordered cardiology consult regarding need for stress test - CBC, CMP grossly WNL - CXR with ? prominent bronchovascular markings and are present dense pulmonary nodule Consider outpt follow up for pulmonary nodule - Total Cholesterol is 207, HDL is 71 Not on statin, however consideration of starting statin was discussed at most recent PCP visit on 01/01/2025. - Continue nitroglycerine PRN - Continue Aspirin 81 mg - Tylenol 650mg PO as needed for pain #HTN- -Continue Losartan 25mg Chronic Conditions: - Loratadine 10 mg for allergies - Polyethylene Glycol 17gm PRN for constipation Diet: Regular Code status: DNR/DNI DVT prophylaxis: Enoxaparin 40mg qd Dispo: Med tele Dispo: Admit, med/tele VTE prophylaxis: Lovenox Code status: Full Code Diet: Heart Healthy Admission and Anticipated Discharge Date Admission Date: January 02, 2025 Subjective Pt is a 69 yo female with PMH of HTN, IBS, and Knee OA who presented to ED with chest pain. Overnight, pt had an episode of chest pain. EKG was read as normal. This morning, Pt denies KEBEDE, current SOB, cough, congestion, chronic GERD, abdominal pain, diarrhea, dizziness, muscle/joint aches, or rashes Review of Systems Review of Systems: As per HPI Physical Exam Physical Exam: General: No acute distress Head: Normocephalic, atraumatic Eyes: PERRL, conjunctivae clear, sclera non-icteric ENT: External ear normal, good dentition, tongue normal appearance, pharynx normal Neck: Supple, no LAD, No JVD Cardio: RRR, no M/G/R, S1 and S2 normal Resp: Lungs CTA in all lobes bilaterally, no wheezes, rales, or rhonchi. Normal work of breathing Abdomen: Soft, symmetric, nontender; No masses or hepatosplenomegaly; Bowel sounds normoactive MSK: No deformities; pulses palpable and equal; no edema. Neuro: Awake, alert; CN grossly intact Skin: Warm and dry, no rashes on exposed areas Psych: Appropriate mood and affect; good judgement and insight. Results & Data Results & Data Vital Signs (Past 12 Hours) Vital Signs Temp Pulse Pulse Resp BP BP Pulse Ox 01/03/25 04:33 68 122/75 01/03/25 03:30 36.5 C 73 18 110/68 94 01/03/25 00:00 36.6 C 79 18 138/81 98 01/02/25 21:58 77 01/02/25 19:38 36.4 C L 79 16 129/77 95 O2 Del Method 01/03/25 04:33 01/03/25 03:30 Room Air 01/03/25 00:00 Room Air 01/02/25 21:58 01/02/25 19:38 Room Air
[2025-01-03] MEDS: ENOXAPARIN INJ 40 MG/0.4 ML SYR SQ SCH (08:21)
[2025-01-03] MEDS: LOSARTAN POTASSIUM 25 MG TAB PO SCH (08:22)
[2025-01-03] MEDS: ASPIRIN 81 MG ECTAB PO SCH (08:22)
[2025-01-03] MEDS: LORATADINE 10 MG TAB PO SCH (08:23)
[2025-01-03 09:10] LABS: Hematocrit (blood only) 42.1 % (37.0-47.0); Hemoglobin 13.9 g/dl (12.0-16.0); Mean Corpuscular Hemoglobin 28.8 pg (25.0-34.0); Mean Corpuscular Volume 87.2 fL (80.0-100.0); Mean Platelet Volume 10.3 fL (9.4-12.4); Platelet Count 305 K/uL (130-400); RDW Coefficient of Variation 13.6 % (11.5-14.5); RDW Standard Deviation 43.3 fL (36.4-46.3); Red Blood Count 4.83 M/uL (4.20-5.40); White Blood Count 9.31 K/ul (4.8-10.8)
[2025-01-03 09:26] LABS: BUN Creatinine Ratio 17.7 (10-20); Creatinine Clr Calc Pharmacy 90.4 ml/min
--- NOTE | 2025-01-03 10:16 | Cardiology Consultation ---
Date of Consultation January 03, 2025 Assessment & Plan (1) Chest pain: (2) Hypercholesterolemia: (3) Hypertension: Plan 1. Chest pain: There is a substantial atypical component to her description, primarily it is not exertional and it is very brief although still lasting up to a minute by her recollection. There is no evidence that she has had myocardial injury (enzymes, ECG or echocardiography). It is possible that it is ischemia, with brief chest discomfort perhaps we would not pick that up with these measures. I think a stress test is reasonable and I believe she is scheduled for that today. The downside to doing a stress test is that it could be positive even though the symptoms or not due to coronary artery disease, as she could have coronary disease that is undiagnosed but that may be worth identifying in any case. 2. Hypercholesterolemia: Her cholesterol is elevated, it is not terribly high but probably should be treated. She is aware of that. 3. Hypertension: She is on minimal blood pressure medications and although her blood pressure was elevated on presentation for the most part it is relatively well-controlled here. History of Present Illness Reason for Consultation: Chest pain Attending Physician: Davidson Barboza MD History of Present Illness This is a 69-year-old woman with a history of prediabetes and hypertension who has been having chest discomfort recently (probably since December 30, 2024). She was started on nitroglycerin and aspirin on January 01, 2025 although she has not taken the nitroglycerin. She awoke early in the morning on January 02, 2025 with chest pain radiating to her neck and back and came to the emergency room. On initial evaluation her electrocardiogram was sinus rhythm at 73 bpm and was normal. A repeat electrocardiogram early this morning is also normal. An echocardiogram done January 03, 2024 was essentially normal. She has had high- sensitivity troponins x 2 which are normal. I discussed her symptoms with her, basically she describes symptoms as noted above. She does note that the symptoms rarely last more than a minute, are not typically exertional and occur more often at rest. She does confirm that they never happened before about December 30, 2024. She admits to not having a great diet and she is not on cholesterol medications. She has had several episodes while in the hospital overnight. Allergies Allergy/AdvReac Type Severity Reaction Status Date / Time No Known Drug Allergies Allergy Unknown Verified 01/01/25 13:31 pollen extracts Allergy Unknown sneezing, Verified 01/01/25 13:31 watery eyes Home Medications Medication Instructions Recorded Confirmed Type beta xmkalbnq-K-X-lutein-min #29 1 tab PO QAM 01/04/20 01/02/25 History 5,000 unit-60 mg-30 unit-2 mg tablet (Macuvite With Lutein) calcium carbonate (Tums) 600 mg PO DAILY PRN Acid Reflux 07/11/20 01/02/25 History diphenhydramine HCl 25 mg capsule 25 mg PO BID PRN Allergy Symptoms 07/11/20 0 01/02/25 History (Benadryl) ibuprofen 200 mg tablet 200 mg PO Q6H PRN Pain 07/11/20 01/02/25 History loratadine 10 mg tablet 10 mg PO QAM 07/11/20 01/02/25 History omega-3 fatty acids 1,000 mg 1,000 mg PO DAILY 11/11/20 01/02/25 History capsule (Fish Oil Concentrate) diclofenac sodium [Voltaren] 1 dose topical .nightly PRN Pain 04/28/23 01/02/25 History cholecalciferol (vitamin D3) 125 125 mcg PO DAILY 01/14/24 01/02/25 History mcg (5,000 unit) capsule clobetasol 0.05 % topical ointment 1 applic topical BID #30 grams 09/25/24 01/02/25 Rx losartan 25 mg tablet 25 mg PO QAM #30 tabs 12/25/24 01/02/25 Rx aspirin 81 mg tablet,delayed 81 mg PO DAILY #30 tabs 01/01/25 01/02/25 Rx release (Adult Aspirin Regimen) nitroglycerin 0.4 mg sublingual 0.4 mg sublingual Q5M PRN chest 01/01/25 01/02/25 Rx tablet pain #10 tabs hydroxyzine HCl 25 mg tablet 25 mg PO BID PRN anxiety #30 tabs 01/03/25 Rx Patient History Medical History Slow to wake up after anesthesia after colonoscopy Hypertension History of COVID-19 Jun 2022 > not hospitalized Rosacea IBS (irritable bowel syndrome) hx of Pre-diabetes diet controlled Pollen allergies Osteoarthritis Acid reflux Surgical History History of needle biopsy right breast--benign History of colonoscopy History of bilateral cataract extraction History of wisdom tooth extraction History of tubal ligation (~1986) Family History Father Myocardial infarction Family history of diabetes mellitus Mother Family history of diabetes mellitus Other No family history of adverse response to anesthesia Denies family history of Ovarian cancer Prostate cancer Breast cancer Colorectal cancer Social History Smoking Status: Never smoker Second Hand Exposure: Yes (as child); Do You Dip or Chew Tobacco: No; Hx Alcohol Use: No Hx Substance Use: No Preferred Language: Palestinian Communication Ability: Effective Visual Impairment: Limited Hearing Ability: Hard of Hearing German Instructor Required: No Beliefs That Will Affect Care: None marital status: / Current Living Situation: Alone current occupational status: retired How many Children do You have: 1 Feels Safe at Home: Yes Childhood Exposure to Second-Hand Smoke: Yes Diet: regular caffeine: No during the past year weight has: remained stable Dental Care, Regularly: Yes Physical Activity Frequency: 3-4 Times per Week Physical Activity Frequency Comment: Stretching and weights class 2 days a week and walk about 2 days a week Seatbelt Use: always Sunscreen Use: No Do you think of yourself as: straight/heterosexual Sexual Activity: has been sexually active, but not for at least 12 months Gender Identity: Female Assistive Devices: Glasses Review of Systems Review of Systems: All systems reviewed & are unremarkable except as noted in HPI & below Physical Exam Physical Exam: Constitutional: Alert, cooperative and in no distress. HEENT: Unremarkable Neck: No jugular venous distention, carotid pulses are normal and equal bilaterally without bruits. Pulmonary: Clear to auscultation bilaterally. Cardiac: Regular rhythm with no murmur, gallop or rub. Abdomen: Soft, nontender with normal bowel sounds. Extremities: No edema. Distal pulses intact. Neurologic: No focal findings. Gait is steady. Skin: No rash, ecchymoses or petechiae. Results & Data Vital Signs (Past 12 Hours) Vital Signs Temp Pulse Resp BP BP Pulse Ox O2 Del Method 01/03/25 08:16 Room Air 01/03/25 07:33 36.6 C 75 16 128/78 94 Room Air 01/03/25 04:33 68 122/75 01/03/25 03:30 36.5 C 73 18 110/68 94 Room Air 01/03/25 00:00 36.6 C 79 18 138/81 98 Room Air Laboratory Results Lipids 01/02/25 Range/Units 10:07 Triglycerides 70 (0-150) mg/dl Cholesterol 207 H (0-200) mg/dl HDL Cholesterol 71 mg/dl Cholesterol/HDL Ratio 2.9 (0-5) CBC 01/03/25 Range/Units 08:35 WBC 9.31 (4.8-10.8) K/ul RBC 4.83 (4.20-5.40) M/uL Hgb 13.9 (12.0-16.0) g/dl Hct 42.1 (37.0-47.0) % Plt Count 305 (130-400) K/uL Comprehensive Metabolic Panel 01/03/25 Range/Units 08:35 Sodium 137 (136-145) mmol/L Potassium 4.0 (3.5-5.1) mmol/L Chloride 105 (98-107) mmol/L Carbon Dioxide 27 (21-32) mmol/L BUN 11 (6-23) mg/dl Creatinine 0.62 (0.6-1.2) mg/dl Glucose 102 H (70-99(Fasting)) mg/dl Calcium 9.0 (8.6-10.3) mg/dl Intake and Output 01/02/25 01/03/25 01/03/25 22:59 06:59 14:59 Intake Total 240 / 240 240 / 240 Balance 240 / 240 240 / 240 Intake: Oral 240 / 240 240 / 240 Other: Weight 90 kg Weight Measurement Method Built in [facility] Diagnostic Findings Telemetry: Sinus rhythm typically 70 to 80 bpm. No significant arrhythmia. PG Care Time/CCT Total # of Minutes Spent Total Time Spent with Patient: Total time spent is greater than 50% in coordination of care (as documented) at patient's floor/unit and/or counseling patient: Coding Level of Care Code 30574 INT INP/OBS CARE 3/75MIN Diagnoses Chest pain R07.9 Hypercholesterolemia E78.00 Primary hypertension I10 Hypertension type: primary hypertension (3) Hypertension Hypertension type: primary hypertension Qualified Code(s): I10 - Essential (primary) hypertension
--- NOTE | 2025-01-03 15:33 | Discharge Summary ---
Date of Service January 03, 2025 Admission HPI Per Admitting Provider 69-year-old female PMHx prediabetes and HTN presenting for chest pain. Patient was just seen by PCP on 01/01/2025 for same complaint which started 2 days prior to that (12/30/2024). Presenting today via EMS after she awoke from sleep around 0130 with sharp pain in the right side of her chest that radiated to her right neck and jaw as well as her back. She did have an episode of nausea without vomiting and did have diaphoresis. The pain is sharp in nature, rating 4-5/10 on the pain scale, and episodes lasting 30 seconds to 1 minute in duration then resolving. States that she has never had this happen before. Does have acid reflux at baseline and has noticed increased belching over the past few days. 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 Patient was prescribed nitroglycerin by her PCP but did not pick it up yet. Also recommended to start daily aspirin which patient has been doing. Denies palpitations, SOB, cough, abdominal pain, D/C, numbness/tingling, LUTS, edema, syncope, or dizziness. Never had this happen before. ED evaluation reveals no leukocytosis, normal blood counts, no gross abnormalities on CMP with exception of alkaline phosphatase at 113, troponin <2.3, pending repeat, and lipase of 32; CXR reveals no acute findings but does demonstrate R upper zone dense pulmonary nodule and prominent bronchovascular markings. EKG is normal sinus at a rate of 73 bpm. Patient was provided with acetaminophen 1 g IV in ED. Please see Dr. Byers's attestation for adjustments/additions to treatment plan. Principal Diagnosis Chest Pain Discharge Exam General: No acute distress Head: Normocephalic, atraumatic Eyes: PERRL, conjunctivae clear, sclera non-icteric ENT: External ear normal, good dentition, tongue normal appearance, pharynx normal Neck: Supple, no LAD, No JVD Cardio: RRR, no M/G/R, S1 and S2 normal Resp: Lungs CTA in all lobes bilaterally, no wheezes, rales, or rhonchi. Normal work of breathing Abdomen: Soft, symmetric, nontender; No masses or hepatosplenomegaly; Bowel sounds normoactive MSK: No deformities; pulses palpable and equal; no edema. Palpation at sternum and ribs does not reproduce pain Neuro: Awake, alert; CN grossly intact Skin: Warm and dry, no rashes on exposed areas Psych: Appropriate mood and affect; good judgement and insight. Discharge Data Allergies Allergy/AdvReac Type Severity Reaction Status Date / Time No Known Drug Allergies Allergy Unknown Verified 01/01/25 13:31 pollen extracts Allergy Unknown sneezing, Verified 01/01/25 13:31 watery eyes Consultations 01/02/25 05:04 ED Decision to Admit Stat 01/02/25 12:19 Consult Cardiology Routine Hospital Course (1) Chest pain: Plan 69-year-old female PMHx of HTN admitted for observation for chest pain. Patient was just seen by PCP on 01/01/2025 for same complaint which started 2 days prior to that (12/30/2024). ED evaluation revealed no leukocytosis, normal blood counts, no gross abnormalities on CMP with exception of alkaline phosphatase at 113, troponin <2.3, repeat 3.3, and lipase of 32; CXR reveals no acute findings but does demonstrate R upper zone dense pulmonary nodule and prominent bronchovascular markings. EKG is normal sinus at a rate of 73 bpm. Pain was controlled with acetaminophen 1 g IV in ED. 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 Presenting today for being awoken at 0130 for chest pain that radiates up to neck and back. Positive family history of cardiac disease. Low suspicion that this is ACS however HEART score is 4 (history moderately suspicious, age, 1-2 risk factors). - EKG normal sinus at a rate of 73 bpm; troponin <2.3, repeat 3.3 - Repeat EKG during episode of chest pain this morning reassuring with read in sinus rhythm and without evidence of ST changes - Awaiting results from Echocardiogram - Ordered cardiology consult regarding need for stress test - CBC, CMP grossly WNL - CXR with prominent bronchovascular markings and are present dense pulmonary nodule Consider outpt follow up for pulmonary nodule - Total Cholesterol is 207, HDL is 71 Not on statin, however consideration of starting statin was discussed at most recent PCP visit on 01/01/2025. - Continue nitroglycerine PRN - Continue Aspirin 81 mg - Tylenol 650mg PO as needed for pain #HTN- -Continue Losartan 25mg Chronic Conditions: - Loratadine 10 mg for allergies - Polyethylene Glycol 17gm PRN for constipation Diet: Regular Code status: DNR/DNI DVT prophylaxis: Enoxaparin 40mg qd Dispo: Med tele Dispo: Admit, med/tele VTE prophylaxis: Lovenox Code status: Full Code Diet: Heart Healthy Total Time Total Time Spent Total Time Spent (In Minutes): As per attending physician's attestation. Discharge Plan Discharge Items Patient Disposition: Home - Self-Care Reason For Visit: CHEST PAIN Discharge Diagnosis: Chest pain Activity: Resume your previous activity Non-emergency contact: Primary Care Provider Call non-emergency contact if: your symptoms worsen Follow-up/Referrals: Viv Hernandez CRNP [Primary Care Provider] - Diet: Regular Addtl Attending Provider Instructions: You were admitted for observation due to episodic chest pain. Your testing included multiple EKGs, Chest x-ray, blood work assessing electrolytes, blood cell levels, cholesterol levels, serial troponin levels, echocardiogram, and exercise stress test with echocardiogram. At this time, the results returned as normal and not indicating a cardiac injury or dysfuncion. We are going to send a prescription for hydroxyzine, gill can take this as needed for anxiety. It can make you drowsy. It would also be reasonable to discuss with your primary care provider if you'd like to start a daily medication to help with anxiety. We recommend that you follow up with your PCP in 7 days from hospital discharge for further work up of your chest pain. No changes have been made to your home medications. Thank you for choosing [facility] for your health care, it was a pleasure being a part of your care team. Pending Studies at Discharge: No Stand-Alone Forms: My [facility], Smoking Cessation Medications and DC Order Prescriptions: New hydroxyzine HCl 25 mg tablet 25 mg PO BID PRN (Reason: anxiety) Qty: 30 0RF Continued clobetasol 0.05 % ointment 1 applic topical BID Qty: 30 2RF losartan 25 mg tablet 25 mg PO QAM Qty: 30 11RF omega-3 fatty acids [Fish Oil Concentrate] 1,000 mg capsule 1,000 mg PO DAILY cholecalciferol (vitamin D3) 125 mcg (5,000 unit) capsule 125 mcg PO DAILY diclofenac sodium [Voltaren] 1 dose topical .nightly PRN (Reason: Pain) Macuvite With Lutein 5,000-60-30-2 jmlq-lt-gtqv-mg tablet 1 tab PO QAM nitroglycerin 0.4 mg tablet, sublingual 0.4 mg sublingual Q5M PRN (Reason: chest pain) Qty: 10 0RF Rx Instructions: do not exceed 3 doses per episode aspirin [Adult Aspirin Regimen] 81 mg tablet,delayed release (DR/EC) 81 mg PO DAILY Qty: 30 2RF diphenhydramine HCl [Benadryl] 25 mg Capsule 25 mg PO BID PRN (Reason: Allergy Symptoms) ibuprofen 200 mg Tablet 200 mg PO Q6H PRN (Reason: Pain) loratadine 10 mg Tablet 10 mg PO QAM Tums 300 mg (750 mg) Tablet,Chewable 600 mg PO DAILY PRN (Reason: Acid Reflux) Discharge Orders: Discharge Order (Routine); Ordered 01/03/25 Ordered By: Yesica Ruth Admission Data Admit Date/Time: 01/02/25 05:31 Attending Provider: Davidson Barboza Admit Provider: Velvet Byers Primary Care Provider: Viv Hernandez. Other Providers: Velvet Byers; Jagdish Cleary Other Interventions: Discharge Summary Assessment (RN) Last Done: 01/03/25 16:51 Supervising Physician Co-Signing Physician Notes Patient seen and examined, chart reviewed, case discussed with Crista Haley PGY1 and I agree with the assessment and plan as above. In brief, patient is a 69yo female with no known cardiac history, pre-DM, HTN and FHx of cardiac disease presenting with chest pain. She has had an ongoing intermittent right sided chest pain which started several days ago. Troponin x 2 unremarkable but do show a slight uptrend EKG is non-ischemia Exam is nonspecific. Had a previous stress test workup in the distant past but this discomfort also include arm discomfort Neurology consultation and stress testing were undertaken. Stress test was unremarkable for inducible ischemia. Concern if this is a stress related symptom patient was discharged on hydroxyzine Labs and images reviewed Assessment/Plan 69yo female with history of pre-DM, HTN, family history of CAD presenting with ongoing chest discomfort. Fairly certain that the ongoing pain is non-cardiac as it has been going for >36 hours, no acute EKG changes and Troponin x 2 is NEGATIVE. Recommend follow-up with the patient's primary care provider to discuss alternative causes of chest pain Patient is discharged home greater than 30 minutes required to complete this discharge summary including discussion with cardiology
[2025-01-03 16:13] VITALS: PULSE 84; RESP 20; TEMP 98.6; O2SAT 96
--- NOTE | 2025-01-03 16:15 | Electrocardiogram Report ---
Test Reason : Blood Pressure : */* mmHG Vent. Rate : 75 BPM Atrial Rate : 75 BPM P-R Int : 182 ms QRS Dur : 84 ms QT Int : 416 ms P-R-T Axes : 51 11 43 degrees QTcB Int : 464 ms Poor data quality, interpretation may be adversely affected Normal sinus rhythm Normal ECG When compared with ECG of 02-Jan-2025 03:26, (unconfirmed) No significant change was found Confirmed by Jagdish Cleary ([id number]) on 01/03/2025 4:14:48 PM Referred By: REFERRED SELF Confirmed By: Jagdish Cleary
[2025-01-03 16:53] VITALS: BP 128/78
--- NOTE | 2025-01-03 17:42 | Billing Data ---
Date of Service January 03, 2025 Coding Level of Care Code 47069 INP/OBS DISCH >30 MIN
--- NOTE | 2025-01-03 20:52 | Electrocardiogram Report ---
Test Reason : Blood Pressure : */* mmHG Vent. Rate : 73 BPM Atrial Rate : 73 BPM P-R Int : 190 ms QRS Dur : 82 ms QT Int : 396 ms P-R-T Axes : 51 -3 25 degrees QTcB Int : 436 ms Normal sinus rhythm Minimal voltage criteria for LVH, may be normal variant ( R in aVL ) Borderline ECG When compared with ECG of 16-Feb-2024 11:50, No significant change was found Confirmed by Jagdish Cleary ([id number]) on 01/03/2025 8:52:29 PM Referred By: REFERRED SELF Confirmed By: Jagdish Cleary
--- NOTE | 2025-01-04 15:01 | XCELERA ---
[id number]
== END 2025-01-03 17:28 | disposition home or self-care (01) ==
LOC: SUATTDRO → EDINP 03:20 → ED 03:20 → SUATTDRO 05:31 → 2N 08:36